=== PATIENT | female | born 1945 | race Caucasian/White ===

== ENCOUNTER → 2017-03-27 | Outpatient (CLI) | payer OTHER ==
--- NOTE | ~2017-03-27 | CT4 ---
[facility] A Service of [facility] RADIOLOGY TEXT RESULTS PATIENT: MANNY WARD LOCATION: [facility] : 47 UNIT #: [id number] AGE: [address]: Luis Reynolds MD SEX: F ORDER DR: [id number] [facility]. [place], [place] [address] [id number] O MR#: [id number] Acc #: [id number] NAME: MANNY WARD : 1945 SEX: F STUDY DATE/TIME: 03/27/2017 15:00 UNIT: [facility] ROOM: STUDY DESCRIPTION: CT Abd and Pelv Wo Cont Attending Physician: Luis Reynolds M.D. Referring Physician: Luis Reynolds M.D. Ordering Physician: Luis Reynolds M.D. Primary Care Physician: Linda Bianchi M.D. MEDICAL IMAGING REPORT This report is preliminary unless electronic signature is present EXAM CT abdomen and pelvis without contrast INDICATION Intermittent proteinuria and hematuria since September of 2016. Frequent urinary tract infections. PROCEDURE Unenhanced CT of the abdomen and pelvis. This CT exam was performed with one or more of the following radiation dose reduction techniques: automatic exposure control, adjustment of mA and/or kV according to patient size, and iterative reconstruction. COMPARISON 02/01/2014 FINDINGS ABDOMEN WITHOUT CONTRAST: Included lung bases are clear. Liver borderline enlarged at 19.4 cm. The spleen, adrenal glands, pancreas, gallbladder have an unremarkable unenhanced appearance. The bowel loops are nondilated. Appendix is normal. There is a 5 mm nonobstructing calculus in the right kidney. There are areas of cortical scarring in the right kidney. No radiodense ureteral calculus or hydronephrosis. PELVIS WITHOUT CONTRAST: No radiodense bladder calculus. Previous hysterectomy. No pelvic mass or fluid. No aggressive-appearing bone lesion. IMPRESSION 1. No acute findings. [facility] A Service [facility] RADIOLOGY TEXT RESULTS PATIENT: MANNY WARD LOCATION: [facility] : 47 UNIT #: [id number] AGE: [address]: Luis Reynolds MD SEX: F ORDER DR: 2. Nonobstructing calculus in the right kidney. 3. Areas of cortical scarring in the right kidney. Dictated by... Dorian Ching M.D. THIS IS AN ELECTRONICALLY VERIFIED REPORT Dorian Ching M.D. at 03/31/2017 7:41 AM LOUISE/gera TD: 03/28/2017 10:20 JOB #: [id number] MEDICAL IMAGING REPORT Page 1 of 1 COPY
== END | disposition home or self-care (01) ==
LOC: CCAT 13:59
DX: N20.0 Calculus of kidney (principal); N28.89 Other specified disorders of kidney and ureter
CPT/HCPCS: 74176

== ENCOUNTER → 2017-06-30 | Outpatient (CLI) | payer OTHER ==
--- NOTE | ~2017-06-30 | MY29 ---
[facility] A Service of [facility] RADIOLOGY TEXT RESULTS PATIENT: MANNY WARD LOCATION: [facility] : 47 UNIT #: [id number] AGE: [address]: Patrick Loera MD SEX: F ORDER DR: [id number] [facility] [address] [place], [place] [address] [id number] O MR#: [id number] #: [id number] NAME: MANNY WARD : 1945 SEX: F STUDY DATE/TIME: 06/30/2017 15:37 UNIT: [facility] ROOM: STUDY DESCRIPTION: MY [facility] SCREENING W/ CAD BILAT Attending Physician: Patrick Loera M.D. Referring Physician: Patrick Loera M.D. Ordering Physician: Patrick Loera M.D. Primary Care Physician: Linda Bianchi M.D. MEDICAL IMAGING REPORT This report is preliminary unless electronic signature is present EXAM Digital screening mammogram 06/30/2017 HISTORY 71-year-old woman, no risk elevation. Annual screening. COMPARISON STUDIES 05/02/2016. FINDINGS Digital imaging of each breast was completed utilizing a two-view examination of each breast in craniocaudal and mediolateral-oblique projections. Review and interpretation of digital mammograms include a second review in conjunction with FDA-approved CAD device. There is a normal parenchymal presentation bilaterally consistent with the patient's age. There are no breast masses imaged and no parenchymal asymmetry is visualized. There are no suspicious microcalcifications and I see no focal architectural disturbance. Breast parenchyma is fatty replaced. IMPRESSION Negative screening digital mammogram. One-year followup recommended. Patients over the age of 40 are entered into a reminder system with target due date for the next mammogram. A result letter will also be sent to the patient. BIRADS: 1 Negative Dictated by... [facility] A Service [facility] RADIOLOGY TEXT RESULTS PATIENT: MANNY WARD LOCATION: [facility] : 47 UNIT #: [id number] AGE: [address]: Patrick Loera MD SEX: F ORDER DR: Tyrell Rojas M.D. THIS IS AN ELECTRONICALLY VERIFIED REPORT Tyrell Rojas M.D. at 07/01/2017 8:09 AM JBB/pcl TD: 07/01/2017 00:18 JOB #: [id number] MEDICAL IMAGING REPORT Page 1 of 1 COPY
== END | disposition home or self-care (01) ==
LOC: CWCC 15:14
DX: Z12.31 Encounter for screening mammogram for malignant neoplasm of breast (principal)
CPT/HCPCS: G0202